=== PATIENT | male | born 1955 | race Caucasian/White ===

== ENCOUNTER 2016-12-28 16:19 | Emergency (ER) | payer BC ==
[~2016-12-28] VITALS: Ht 172.7 cm; Wt 87.8 kg
[2016-12-28] MEDS ORDERED: PERCOCET 5/31 TABLET PO (17:13)
[2016-12-28] MEDS ORDERED: TEGRETOL200 MG PO (17:13)
[2016-12-28 17:39] VITALS: BP 147/97
== END 2016-12-28 17:39 | disposition home or self-care (01) ==
LOC: EME 16:19
DX: G50.0 Trigeminal neuralgia (principal); E78.5 Hyperlipidemia, unspecified; I10 Essential (primary) hypertension
CPT/HCPCS: 99281; 99284